=== PATIENT | female | born 1955 | race Caucasian/White ===

== ENCOUNTER 2017-03-16 15:56 | Emergency (ER) | payer BC ==
[2017-03-16 16:09] VITALS: TEMP 98.2
[2017-03-16] MEDS ORDERED: SULFAMETHOX/TMP 800/160 MG 1 TAB PO ONE (16:40)
[2017-03-16] MEDS ORDERED: CEPHALEXIN 500 MG CAP PO ONE (16:41)
--- NOTE | 2017-03-16 16:48 | EDPHY ---
H & P Time Seen by Provider: 03/16/17 16:27 HPI/ROS: HPI Red spot on her nose, concerned about a MRSA infection. 61-year-old female by private vehicle. She has a history of an MRSA infection involving her nose 3 years ago. She reports that on Thursday she noticed some redness to the tip of her nose which is similar to her prior MRSA infection. She has not had a fever. No difficulty breathing. She denies significant pain. No history of nasal trauma. ROS: Constitutional: No fever, no chills. No weakness. Eyes: No discharge. No changes in vision. ENT: No sore throat. No nasal congestion or rhinorrhea. As above. Respiratory: No cough. No shortness of breath. Musculoskeletal: No back pain. No neck pain. No myalgias or arthralgias. Skin: No rashes. As above. Neurological: No headache. No focal weakness or altered sensation. Past medical history: Hypertension, hypothyroidism, hysterectomy, tonsillectomy , appendectomy, Eleno's, fibromyalgia, chronic back pain. As above. Social history: Here by herself. Nonsmoker. Physical Exam: General Appearance: Alert, no distress. This patient is responding to questions appropriately and in full sentences. This patient appears well- hydrated and well-nourished. Eyes: Pupils equal and round no pallor or injection. No lid edema, erythema or injection. ENT: Mild erythema and what appears to be a faint superficial abrasion associated with the under tip of her nose extending over the under side of the left nostril and the outer skin of the septum. No significant tenderness on palpation. Evidence of fluid collection/fluctuance/abscess. No edema. Nasal cavities are clear. Neurological: Motor sensory function is grossly intact. Cranial nerves are normal. Gait is normal. Skin: Warm and dry, no rashes. Musculoskeletal: Neck is supple and nontender. Extremities are symmetrical. All joints range without pain or impingement. Psychiatric: No agitation. No depression. Database: EKG: Imaging: Procedures: Emergency department course: Vital signs reviewed and are normal. This does not appear to be a significant soft tissue infection. Plan at this time will be to treat the above-described area with topical mupirocin. If it is getting worse or not getting better in a few days I will prescribe her a combination of Keflex as well as Bactrim for treatment of possible MRSA or streptococcal infection. She will follow up with her primary care physician for re-evaluation in 2 days. Return to emergency department precautions discussed with her. All of her questions were answered. She was discharged in good condition. Differential Diagnosis: The differential diagnosis on this patient includes but is not limited to superficial abrasion to under side of nose, early cellulitis. Abscess, erysipelas, other serious bacterial infection unlikely at this time. This represents a partial list of diagnoses considered. These considerations are based on history, physical exam, past history, reassessment and diagnostic testing. Smoking Status: Never smoked Constitutional: Initial Vital Signs Temperature (C) 36.8 C 03/16/17 16:02 Heart Rate 97 03/16/17 16:02 Respiratory Rate 16 03/16/17 16:02 Blood Pressure 152/89 H 03/16/17 16:02 O2 Sat (%) 98 03/16/17 16:02 O2 Delivery Mode Room Air Allergies/Adverse Reactions: No Known Allergies Allergy (Verified 03/16/17 16:09) Home Medications: Medication Instructions Recorded Losartan/Hctz 50/12.5 07/10/13 Metoprolol Succinate 07/10/13 Nortriptyline HCl 07/10/13 Omeprazole 07/10/13 ARMOUR THYROID 03/16/17 Acyclovir 03/16/17 Ambien 03/16/17 Cephalexin [Keflex (*)] 500 mg PO Q6 7 Days cap 03/16/17 KETOPROFEN 03/16/17 Mupirocin 22 gm TP TID #1 oint...g. 03/16/17 Sulfamethox/Tmp 800/160 mg 1 tab PO BID@1000,2200 #10 tab 03/16/17 [Bactrim Ds] Departure - Departure Disposition: Home, Routine, Self-Care Clinical Impression: Abrasion of nose, Possible early cellulitis of the nose, History of MRSA infection Condition: Good Instructions: Abrasion (ED), Cellulitis (ED) Additional Instructions: Read and follow provided instructions. Follow-up with your primary care physician in 2 days for re-evaluation as discussed. Mupirocin ointment: Apply to affected area 3 times daily for 5 days. I have prescribed you Bactrim as well as Keflex for treatment of a more serious infection. If the area involving her nose worsens, becomes more red or swollen you can start taking this medication. Return to the emergency department for worsening redness to your nose, swelling , fever, pain or other serious concerns. Referrals: NONE *PRIMARY CARE P,. [Primary Care Provider] - As per Instructions Prescriptions: Cephalexin [Keflex (*)] 500 mg PO Q6 7 Days cap Mupirocin 22 gm TP TID #1 oint...g. Sulfamethox/Tmp 800/160 mg [Bactrim Ds] 1 tab PO BID@1000,2200 #10 tab
[2017-03-16 17:15] VITALS: BP 125/63; PULSE 74; RESP 18; O2SAT 97
== END 2017-03-16 17:15 | disposition home or self-care (01) ==
LOC: CED 15:56
DX: S00.31XA Abrasion of nose, initial encounter (principal); I10 Essential (primary) hypertension; Z86.14 Personal history of Methicillin resistant Staphylococcus aureus infection; X58.XXXA Exposure to other specified factors, initial encounter